=== PATIENT | female | born 1955 | race Caucasian/White ===

== ENCOUNTER 2023-08-07 14:39 | Emergency (ER) | payer MEDICARE, OTHER ==
[~2023-08-07] VITALS: Ht 162.6 cm; Wt 88.0 kg
[2023-08-07 14:39] VITALS: BP 115/66; PULSE 71; RESP 18; TEMP 98.2; O2SAT 96
[2023-08-07 14:58] LABS: BASOPHIL % 0.5 % (0.0-0.2); EOSINOPHIL # 0.2 10^3/uL (0.0-0.2); EOSINOPHIL % 3.9 % (0.0-5.0); HEMATOCRIT(ML) 35.2 % (36.0-46.0); LYMPHOCYTES # 2.01 10^3/uL1 (1.0-4.8); LYMPHOCYTES % 45.9 % (24.0-44.0); MEAN CORP HGB 32.1 pg (26-34); MEAN CORP HGB CONCENTRATION 34.1 g/dL (33-36.5); MEAN CORP VOLUME 94.1 fL (78-100); MONOCYTES # 0.5 10^3/uL (0.3-0.8); NEUTROPHIL # 1.7 10^3/uL (1.8-7.7); NEUTROPHILS % 38.7 % (41.0-85.0); PLATELET COUNT 151 10^3/uL (150-400); RED BLOOD CELL 3.74 10^6/uL (4.00-5.20); WHITE BLOOD CELL 4.4 10^3/uL (4.5-11.0)
[2023-08-07 15:01] LABS: +ADD MANUAL DIFF(NO CHRG) NO
[2023-08-07 15:18] LABS: INR 1.1; PROTHROMBIN PROTIME 11.2 SEC (9.7-11.6)
[2023-08-07 15:23] LABS: ALBUMIN(ML) 4.1 g/dL (3.4-5.0); ALBUMIN/GLOBULIN RATIO 1.64; ANION GAP 13.6; CALCIUM 9.2 mg/dL (8.4-10.5); CARBON DIOXIDE 24.9 mmol/L (20.0-32); CREATININE SERUM 0.85 mg/dL (0.59-1.40); EST GFR, NON-AA 66.7 (>/=60); POTASSIUM 3.5 mmol/L (3.6-5.2)
[2023-08-07 15:48] VITALS: BP 154/72; PULSE 85; RESP 18; O2SAT 95
[2023-08-07 16:42] VITALS: BP 155/72; PULSE 76; RESP 18; O2SAT 96
[2023-08-07 16:52] LABS: BILIRUBIN,URINE NEGATIVE (NEGATIVE); LEUKOCYTE ESTERASE ,URINE NEGATIVE (NEGATIVE); NITRATE,URINE NEGATIVE (NEGATIVE); PH,URINE 5.5 (4.5-8.0); UROBILINOGEN,URINE 0.2 E.U./dL (0.2)
[2023-08-07 16:54] LABS: APPEARANCE,URINE CLEAR; UA COLOR YELLOW
[2023-08-07] MEDS ORDERED: ASPIRIN ONE (17:27)
[2023-08-07] MEDS: ASPIRIN PO STA (17:28)
[2023-08-07 17:32] VITALS: BP 145/73; PULSE 76; RESP 18; O2SAT 96
== END 2023-08-07 18:26 | disposition short-term general hospital (02) ==
LOC: EDBD 14:39 → ER 14:39
DX: G62.9 Polyneuropathy, unspecified (principal); I11.0 Hypertensive heart disease with heart failure; I50.9 Heart failure, unspecified; E78.5 Hyperlipidemia, unspecified; Z86.73 Personal history of transient ischemic attack (TIA), and cerebral infarction without residual deficits; Z90.49 Acquired absence of other specified parts of digestive tract; Z90.89 Acquired absence of other organs; Z95.5 Presence of coronary angioplasty implant and graft
CPT/HCPCS: 99291; 70498; 71045; 99292; 70496; 81003; 80053; 85025; 36415; 84484; 85610; 85730; 93005; 70450; Q9965

== ENCOUNTER 2023-12-07 11:41 | Observation (INO) | payer MEDICARE, OTHER ==
[~2023-12-07] VITALS: Ht 165.1 cm; Wt 87.3 kg
[2023-12-07] VITALS (9 sets, daily range): BP systolic 117–146; BP diastolic 56–81; PULSE 51–66; RESP 17–21; TEMP 97.6–98.1; O2SAT 94–98
[2023-12-07 12:24] LABS: HEMATOCRIT(ML) 37.8 % (36.0-46.0); HEMOGLOBIN 12.8 g/dL (12.0-15.0); MEAN CORP HGB 32.2 pg (26-34); MEAN CORP HGB CONCENTRATION 33.9 g/dL (33-36.5); MEAN CORP VOLUME 95.2 fL (78-100); RED BLOOD CELL 3.97 10^6/uL (4.00-5.20); RED CELL DISTRIBUTION WIDTH 12.8 % (11.5-14.5); WHITE BLOOD CELL 4.9 10^3/uL (4.5-11.0)
[2023-12-07 12:45] LABS: ANION GAP 11.1; CALCIUM 8.5 mg/dL (8.4-10.5); CARBON DIOXIDE 28.1 mmol/L (20.0-32); CREATININE SERUM 0.7 mg/dL (0.59-1.40); EST GFR, NON-AA 83.2 (>/=60); POTASSIUM 4.2 mmol/L (3.6-5.2)
[2023-12-07] MEDS ORDERED: ASPIRIN PO STA (15:02)
[2023-12-07] MEDS ORDERED: ASPIRIN ONE (15:09)
[2023-12-07] MEDS ORDERED: [UNRECOGNIZED DRUG - CODE] PO (17:50)
[2023-12-07] MEDS ORDERED: AMLO-169 PO (17:50)
[2023-12-07] MEDS ORDERED: DICL75TA2 PO (17:50)
[2023-12-07] MEDS ORDERED: CYCL5TAB PO (17:50)
[2023-12-07] MEDS ORDERED: HYDR-3416 PO (17:50)
[2023-12-07] MEDS ORDERED: PRED5TAB17 PO (17:50)
[2023-12-07] MEDS ORDERED: ASPI325T14 PO (17:50)
[2023-12-07] MEDS ORDERED: ACTEMRA IV (17:50)
[2023-12-07] MEDS ORDERED: Vitamin D (17:50)
[2023-12-07] MEDS ORDERED: CARV25TA PO (17:50)
[2023-12-07] MEDS ORDERED: CLON0.2T PO (17:50)
[2023-12-07] MEDS ORDERED: ATOR20TA PO (17:50)
[2023-12-07] MEDS ORDERED: LOVENOX SQ SCH (20:30)
[2023-12-07] MEDS ORDERED: FLONASE NS PRN ×2 (21:00→22:00)
[2023-12-08] VITALS (10 sets, daily range): BP systolic 111–133; BP diastolic 56–89; PULSE 63–79; RESP 17–18; TEMP 98.1; O2SAT 94–97
[2023-12-08 05:25] LABS: BASOPHIL % 0.6 % (0.0-0.2); EOSINOPHIL # 0.3 10^3/uL (0.0-0.2); EOSINOPHIL % 5.9 % (0.0-5.0); HEMATOCRIT(ML) 36.1 % (36.0-46.0); HEMOGLOBIN 12.3 g/dL (12.0-15.0); LYMPHOCYTES # 2.37 10^3/uL1 (1.0-4.8); LYMPHOCYTES % 49.9 % (24.0-44.0); MEAN CORP HGB 32.4 pg (26-34); MEAN CORP HGB CONCENTRATION 34.1 g/dL (33-36.5); MONOCYTES # 0.6 10^3/uL (0.3-0.8); MONOCYTES % 11.6 % (5.0-12.0); NEUTROPHIL # 1.5 10^3/uL (1.8-7.7); PLATELET COUNT 138 10^3/uL (150-400); RED CELL DISTRIBUTION WIDTH 12.6 % (11.5-14.5); WHITE BLOOD CELL 4.8 10^3/uL (4.5-11.0)
[2023-12-08 05:27] LABS: +ADD MANUAL DIFF(NO CHRG) NO
[2023-12-08 05:42] LABS: ALBUMIN(ML) 3.1 g/dL (3.4-5.0); ALBUMIN/GLOBULIN RATIO 1.192; ANION GAP 13.3; BUN/CREATININE RATIO 22.41 (10.0-20.0); CALCIUM 8.7 mg/dL (8.4-10.5); CARBON DIOXIDE 25.2 mmol/L (20.0-32); CREATININE SERUM 0.58 mg/dL (0.59-1.40); EST GFR, NON-AA 103.4 (>/=60); LDL/HDL RATIO 1.4; POTASSIUM 3.5 mmol/L (3.6-5.2)
[2023-12-08] MEDS ORDERED: KLOR-CON 10 PO SCH (07:30)
[2023-12-08] MEDS ORDERED: ASPIRIN PO SCH (09:00)
[2023-12-08] MEDS ORDERED: LIPITOR PO SCH (09:00)
== END 2023-12-08 10:23 | disposition home or self-care (01) ==
LOC: ER 11:41 → EDBD 11:41 → MS 15:02
PROVIDERS: ADMIT Student in an Organized Health Care Education/Training Program; ATTEND Student in an Organized Health Care Education/Training Program
DX: I10 Essential (primary) hypertension (principal); G45.9 Transient cerebral ischemic attack, unspecified; M54.12 Radiculopathy, cervical region; I25.10 Atherosclerotic heart disease of native coronary artery without angina pectoris; M06.9 Rheumatoid arthritis, unspecified; Z90.710 Acquired absence of both cervix and uterus; Z86.73 Personal history of transient ischemic attack (TIA), and cerebral infarction without residual deficits; Z96.659 Presence of unspecified artificial knee joint; Z79.82 Long term (current) use of aspirin; Z95.5 Presence of coronary angioplasty implant and graft; Z86.2 Personal history of diseases of the blood and blood-forming organs and certain disorders involving the immune mechanism
CPT/HCPCS: 96372; 99285; 70551; 70450; 70498; 70496; 85027; 36415 ×2; 80048; 93306; 80053; 85025; 80061; 83036; 97162; G0378 ×3; J8499 ×2; J1650; Q9965; J3490

== ENCOUNTER 2024-07-17 09:52 | Emergency (ER) | payer MEDICARE, OTHER ==
[~2024-07-17] VITALS: Ht 165.1 cm; Wt 87.3 kg
[2024-07-17] VITALS (8 sets, daily range): BP systolic 134–152; BP diastolic 74–80; PULSE 52–59; RESP 18–20; TEMP 98.9; O2SAT 96–97
[~2024-07-17 09:52] MED LIST: ACTEMRA IV; AMLO-169 PO; ASPI325T14 PO; ATOR20TA PO; CARV25TA PO; CLON0.2T PO; CYCL5TAB PO; DICL75TA2 PO; HYDR-3416 PO; PRED5TAB17 PO; Vitamin D; [UNRECOGNIZED DRUG - CODE] PO
[2024-07-17] MEDS ORDERED: MORPHINE SULFATE ONE (10:47)
[2024-07-17] MEDS: MORPHINE SULFATE IV STA (10:51)
== END 2024-07-17 12:46 | disposition home or self-care (01) ==
LOC: ER 09:52
DX: S42.412A Displaced simple supracondylar fracture without intercondylar fracture of left humerus, initial encounter for closed fracture (principal); Z90.49 Acquired absence of other specified parts of digestive tract; W01.0XXA Fall on same level from slipping, tripping and stumbling without subsequent striking against object, initial encounter; Y93.89 Activity, other specified; Y92.89 Other specified places as the place of occurrence of the external cause; Y99.8 Other external cause status
CPT/HCPCS: 99285; 96374; 29105; 73070; 73090; 73130; 73030; J2270

== ENCOUNTER 2024-10-31 15:29 | Emergency (ER) | payer MEDICARE, OTHER ==
[~2024-10-31] VITALS: Ht 160 cm; Wt 81.6 kg
[2024-10-31 15:29] VITALS: BP 165/95; PULSE 74; RESP 20; TEMP 97.7; O2SAT 94
[~2024-10-31 15:29] MED LIST changes: -CYCL5TAB PO; +CYCL5TAB4 PO
[2024-10-31 16:04] VITALS: BP 172/82; PULSE 73; RESP 20; TEMP 97.7; O2SAT 96
[2024-10-31] MEDS ORDERED: TORADOL ONE (16:18)
[2024-10-31] MEDS: TORADOL IM STA (16:23)
[2024-10-31 16:39] VITALS: BP 168/81; PULSE 77; RESP 20; TEMP 97.7; O2SAT 96
== END 2024-10-31 16:42 | disposition home or self-care (01) ==
LOC: ER 15:29
DX: S59.902A Unspecified injury of left elbow, initial encounter (principal); S69.92XA Unspecified injury of left wrist, hand and finger(s), initial encounter; I50.9 Heart failure, unspecified; Z90.49 Acquired absence of other specified parts of digestive tract; Z90.89 Acquired absence of other organs; W22.09XA Striking against other stationary object, initial encounter; Y93.89 Activity, other specified; Y92.89 Other specified places as the place of occurrence of the external cause; Y99.8 Other external cause status
CPT/HCPCS: 99284; 96372; 73070; 73110; J1885

== ENCOUNTER 2025-07-26 11:20 | Emergency (ER) | payer MEDICARE, OTHER ==
[~2025-07-26] VITALS: Ht 162.6 cm; Wt 81.6 kg
[2025-07-26 11:28] VITALS: BP 132/67; PULSE 75; RESP 18; TEMP 97.9; O2SAT 96
[2025-07-26] MEDS ORDERED: DECADRON ONE (11:45)
[2025-07-26] MEDS ORDERED: DUONEB 0.5-3(2.5) MG/3 ML IH ONE (11:45)
[2025-07-26] MEDS ORDERED: SOLU-MEDROL ONE (11:47)
[2025-07-26] MEDS: DUONEB 0.5-3(2.5) MG/3 ML IH STA (11:48)
[2025-07-26] MEDS: DECADRON IH ONE ×2 (11:51)
[2025-07-26] MEDS: SOLU-MEDROL IM STA (11:51)
[2025-07-26 11:56] VITALS: PULSE 70; RESP 14; O2SAT 95
[2025-07-26 12:15] LABS: INFLUENZA VIRUS A ANTIGEN NEGATIVE (NEG); INFLUENZA VIRUS B ANTIGEN NEGATIVE (NEG)
[2025-07-26 12:43] VITALS: BP 128/70; PULSE 65; RESP 18; O2SAT 98
== END 2025-07-26 12:43 | disposition home or self-care (01) ==
LOC: ER 11:20
DX: J20.9 Acute bronchitis, unspecified (principal); E78.00 Pure hypercholesterolemia, unspecified; I11.0 Hypertensive heart disease with heart failure; I50.9 Heart failure, unspecified; Z20.822 Contact with and (suspected) exposure to COVID-19; Z79.82 Long term (current) use of aspirin; Z79.899 Other long term (current) drug therapy; Z86.73 Personal history of transient ischemic attack (TIA), and cerebral infarction without residual deficits
CPT/HCPCS: 99284; 71046; 87426; 96372; 87804 ×2; J2919; J1100 ×2; J2930